=== PATIENT | male | born 2000 | race African-American/Black ===

== ENCOUNTER 2020-08-24 14:58 | Emergency (ER) | payer MEDICAID ==
[~2020-08-24] VITALS: Ht 177.8 cm; Wt 68.5 kg
[2020-08-24] MEDS ORDERED: ONDANSETRON HCL 4MG/2ML INJ IV STA (15:11)
[2020-08-24] MEDS ORDERED: MORPHINE SULFATE 4 MG/ML CPJ (NOT FOR IM USE) IV STA (15:11)
[2020-08-24 15:24] VITALS: BP 146/103
== END 2020-08-24 16:26 | disposition home or self-care (01) ==
LOC: ER 15:06
DX: S43.005A Unspecified dislocation of left shoulder joint, initial encounter (principal); F10.21 Alcohol dependence, in remission; I49.9 Cardiac arrhythmia, unspecified; Y93.83 Activity, rough housing and horseplay; Y93.89 Activity, other specified; Y92.018 Other place in single-family (private) house as the place of occurrence of the external cause; Y99.8 Other external cause status
CPT/HCPCS: 23650; 73030; 93005; 96374; 96375; 99284; J2270; J2405; A4565

== ENCOUNTER 2021-10-03 09:12 | Emergency (ER) | payer MEDICAID ==
[~2021-10-03] VITALS: Ht 175.3 cm; Wt 75.0 kg
[2021-10-03] MEDS ORDERED: MORPHINE SULFATE 10 MG/ML CPJ IV ONE ×2 (09:30→10:00)
[2021-10-03] MEDS ORDERED: IBUP-2029 MT (10:50)
[2021-10-03 11:21] VITALS: BP 110/72
== END 2021-10-03 11:39 | disposition home or self-care (01) ==
LOC: ER 09:12
DX: S43.004A Unspecified dislocation of right shoulder joint, initial encounter (principal); Y04.0XXA Assault by unarmed brawl or fight, initial encounter; Y93.89 Activity, other specified; Y92.89 Other specified places as the place of occurrence of the external cause; Y99.8 Other external cause status
CPT/HCPCS: 23650; 73020; 73030; 96374; 99284; J2270; Z7610